=== PATIENT | female | born 1960 | race Caucasian/White ===

== ENCOUNTER 2017-09-01 13:40 | Emergency (ER) | payer OTHER ==
[2017-09-01 13:48] VITALS: BP 129/65; BMI 25.8
[2017-09-01] MEDS ORDERED: DILAUDID INJ IVP ONE ×2 (14:11→14:44)
--- NOTE | 2017-09-01 14:13 | DR.GENAD ---
HPI - PCP Primary Care Physician: gerard mora - Complaint/Symptoms Chief Complaint Doctors Comments: Patient presents with complaint of right side pain for four days. She has cancer and has been treated at [place] and now at [place] due to metastisis of her cancer. 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 She admits to cough but no fever. Chief Complaint:: patient has been having right sided rib pain for 4 days. - Source History Provided: Patient - Mode of Arrival Mode of Arrival: Ambulatory - Timing Onset of Chief Complaint: 08/29/17 PMH - PMH Past Medical History: No Past Surgical History: Yes Surgical History: Appendectomy, Cholecystectomy, INLETTER Surgery, Hysterectomy, Tonsillectomy - Family History History of Family Medical Conditions: Yes Family Medical History: Cancer - Social History Does patient currently use any type of tobacco product: Yes Have you used tobacco products in the last 12 months: Yes Type of Tobacco Use: Cigarettes How many years tobacco product used: 40 Does any household member use tobacco: No Alcohol Use: None Do you use any recreational Drugs:: No Lives With: Family Lives Where: Home - infectious screening In the last 2 months have you had wt loss of >10#?: NO Have you had fever, night sweats or hemotysis?: No Have you traveled outside the country in the last 6 months?: No Isolation: Standard ROS - Review of Systems Eyes: No Symptoms Reported ENTM: No Symptoms Reported Respiratoy: No Symptoms Reported Cardiovascular: No Symptoms Reported Gastrointestinal/Abdominal: No Symptoms Reported Genitourinary: No Symptoms Reported Neurological: No Symptoms Reported Musculoskeletal: No Symptoms Reported Integumentary: No Symptoms Reported Hematologic/Lymphatic: No Symptoms Reported Endocrine: No Symptoms Reported Psychiatric: No Symptoms Reported All Other Systems: Reviewed and Negative PE - Vital Signs Vitals: Temperature 100.3 F Pulse Rate 95 Respiratory Rate 18 Blood Pressure 129/65 O2 Sat by Pulse Oximetry 96 - General Limitations: No Limitations General Appearance: Alert, Anxious (pain) - Head Head Exam: Normal Inspection, Atraumatic - Eyes Eye exam: Normal Appearance, PERRL, EOMI - ENT ENT Exam: Normal Exam External Ear Exam: Normal External Inspection TM/Canal Exam: Bilateral Normal Nose Exam: Normal Nose Exam Mouth Exam: Normal Inspection Throat Exam: Normal Inspection - Neck Neck Exam: Normal Inspection - Chest Chest Inspection: Normal Inspection - Respiratory Respiratory Exam: Normal Lung Sounds Bilat Respiratory Exam: Bilateral Clear to Auscultation - Cardiovascular Cardiovascular Exam: Regular Rate, Normal Rhythm - Abdominal Exam Abdominal Exam: Normal Inspection Abdominal Tenderness: negative: RUQ, RLQ, LUQ, LLQ, Epigastrium, Suprapubic, Diffuse, Mild, Moderate, Severe, Other - Extremities Extremities Exam: Normal Inspection, Full ROM - Back Back Exam: Normal Inspection, Full ROM - Neurologic Neurological Exam: Alert, Oriented X3, CN II-XII Intact - Psychiatric Psychiatric Exam: Normal Affect - Skin Skin Exam: Warm, Dry, Intact Course - Reevaluation 1st: Improved ROR - Labs Reviewed Result Diagrams: 09/01/17 14:20 09/01/17 14:20 Laboratory: WBC 11.4 X10^3/uL (3.6-10.0) H 09/01/17 14:20 RBC 4.67 X10^6/uL (3.5-5.4) 09/01/17 14:20 Hgb 15.4 g/dL (12.0-16.0) 09/01/17 14:20 Hct 43.4 % (36.0-47.0) 09/01/17 14:20 MCV 93.1 fL (80.0-100.0) 09/01/17 14:20 MCH 32.9 pg (27.0-34.0) 09/01/17 14:20 MCHC 35.4 g/dL (33.0-35.0) H 09/01/17 14:20 RDW 12.5 % (11.6-16.5) 09/01/17 14:20 Plt Count 149 X10^3/uL (150.0-450.0) L 09/01/17 14:20 MPV 9.5 fL (7.4-11.0) 09/01/17 14:20 Neut % 72.4 % (42.0-75.0) 09/01/17 14:20 Lymph % 17.9 % (21.0-51.0) L 09/01/17 14:20 [place] % 8.0 % (0.0-13.0) 09/01/17 14:20 Eos % 0.8 % (0.9-2.9) L 09/01/17 14:20 Baso % 0.9 % (0.2-1.0) 09/01/17 14:20 Neut # 8.2 x10^3/uL (2.2-4.8) H 09/01/17 14:20 Lymph # 2.0 X10^3/uL (1.3-2.9) 09/01/17 14:20 [place] # 0.9 x10^3/uL (0.3-0.8) H 09/01/17 14:20 Eos # 0.1 x10^3/uL (0.0-0.2) 09/01/17 14:20 Baso # 0.1 X10^3/uL (0.0-0.1) 09/01/17 14:20 Absolute Nucleated RBC 0.0 /100WBC 09/01/17 14:20 Sodium 135 mmol/L (136-145) L 09/01/17 14:20 Corrected Sodium TNP 09/01/17 14:20 Potassium 4.1 mmol/L (3.5-5.1) 09/01/17 14:20 Chloride 99 mmol/L (98-107) 09/01/17 14:20 Carbon Dioxide 28.5 mmol/L (21-32) 09/01/17 14:20 BUN 10 mg/dL (7-18) 09/01/17 14:20 Creatinine 0.80 mg/dL (0.55-1.02) 09/01/17 14:20 Est GFR (MDRD) Af Amer > 60 (>60) 09/01/17 14:20 Est GFR (MDRD) Non-Af > 60 (>60) 09/01/17 14:20 Glucose 105 mg/dL (65-99) H 09/01/17 14:20 Calcium 9.2 mg/dL (8.5-10.1) 09/01/17 14:20 Corrected Calcium 9.9 mg/dL (8.5-10.1) 09/01/17 14:20 Total Bilirubin 0.60 mg/dL (0.2-1.0) 09/01/17 14:20 AST 39 Units/L (15-37) H 09/01/17 14:20 ALT 38 Units/L (12-78) 09/01/17 14:20 Alkaline Phosphatase 303 Units/L (46-116) H 09/01/17 14:20 Total Protein 7.5 g/dL (6.4-8.2) 09/01/17 14:20 Albumin 3.1 g/dL (3.4-5.0) L 09/01/17 14:20 Globulin 4.4 g/dL (2.5-4.5) 09/01/17 14:20 Albumin/Globulin Ratio 0.7 Ratio (1.1-2.1) L 09/01/17 14:20 - XRAY XRAY Interpreted by: Radiologist (Chest: Small linear area of subsegmental atelectasis in the right lung b ase. Otherwise, no radiographic evidence of acute cardiopulmonary disease.) - Diagnosis Discharge Problem: Right Subcostal Rib Pain, Sm subsegmental Linear atelectasis Right, Mild dehydration - Discharge Plan Condition: Stable - Follow ups/Referrals Follow ups/Referrals: GERARD MORA [Primary Care Provider] - 3 days - Instructions
--- NOTE | 2017-09-01 14:26 | RAD ---
HISTORY: Right-sided rib pain for 4 days Study: AP portable chest Comparison: None Findings: There is a small linear area of subsegmental atelectasis in the right lung base. Otherwise, the lung s are clear. The heart size is normal. No evidence of pneumothorax is noted. No evidence of rib fr acture is noted. Prior surgery has been performed on the cervical spine. IMPRESSION: 1. Small linear area of subsegmental atelectasis in the right lung base. 2. Otherwise, no radiographic evidence of acute cardiopulmonary disease. Reported By:
[2017-09-01] MEDS ORDERED: DILAUDID INJ ONE ×2 (14:27→14:49)
[2017-09-01 14:33] LABS: BASOPHILS # (AUTO) 0.1 X10^3/uL (0.0-0.1); BASOPHILS % (AUTO) 0.9 % (0.2-1.0); EOSINOPHILS # (AUTO) 0.1 x10^3/uL (0.0-0.2); EOSINOPHILS % (AUTO) 0.8 % (0.9-2.9); HEMATOCRIT 43.4 % (36.0-47.0); HEMOGLOBIN 15.4 g/dL (12.0-16.0); LYMPHOCYTES % (AUTO) 17.9 % (21.0-51.0); MEAN CORPUSCULAR HEMOGLOBIN 32.9 pg (27.0-34.0); MEAN CORPUSCULAR HGB CONC 35.4 g/dL (33.0-35.0); MEAN CORPUSCULAR VOLUME 93.1 fL (80.0-100.0); MEAN PLATELET VOLUME 9.5 fL (7.4-11.0); MONOCYTES # (AUTO) 0.9 x10^3/uL (0.3-0.8); NEUTROPHILS # (AUTO) 8.2 x10^3/uL (2.2-4.8); NEUTROPHILS % (AUTO) 72.4 % (42.0-75.0); PLATELET COUNT 149 X10^3/uL (150.0-450.0); RED BLOOD COUNT 4.67 X10^6/uL (3.5-5.4); RED CELL DISTRIBUTION WIDTH 12.5 % (11.6-16.5); WHITE BLOOD COUNT 11.4 X10^3/uL (3.6-10.0)
[2017-09-01] MEDS ORDERED: NS 1000 ML 1,000 ML IV ONE (14:36)
[2017-09-01 14:43] LABS: ALANINE AMINOTRANSFERASE 38 Units/L (12-78); ALBUMIN 3.1 g/dL (3.4-5.0); ALKALINE PHOSPHATASE 303 Units/L (46-116); ASPARTATE AMINO TRANSFERASE 39 Units/L (15-37); BLOOD UREA NITROGEN 10 mg/dL (7-18); CALCIUM 9.2 mg/dL (8.5-10.1); CARBON DIOXIDE 28.5 mmol/L (21-32); CHLORIDE 99 mmol/L (98-107); COR CA(FOR HYPOALB) 9.9 mg/dL (8.5-10.1); SODIUM 135 mmol/L (136-145); TOTAL PROTEIN 7.5 g/dL (6.4-8.2); eGFR BLACK RACES > 60 (>60); eGFR NON BLACK RACES > 60 (>60)
[2017-09-01] MEDS ORDERED: NS 1000 ML 1,000 ML ONE (14:44)
== END 2017-09-01 16:30 | disposition home or self-care (01) ==
LOC: ER 13:58
DX: R07.81 Pleurodynia (principal); J98.11 Atelectasis; E86.0 Dehydration; Z72.0 Tobacco use
CPT/HCPCS: 36415; 71045; 80053; 85025; 94640; 96365; 96374; 96375; 99283; A4222